=== PATIENT | female | born 1940 | race Caucasian/White ===

== ENCOUNTER 2022-09-02 13:31 | Emergency (ER) | payer OTHER ==
[2022-09-02] MEDS ORDERED: Morphine 2 MG/ML VIAL ONE ×2 (14:34→16:03)
[2022-09-02] MEDS ORDERED: Ondansetron PF 4 MG/2 ML Vial ONE (14:34)
[2022-09-02 15:17] LABS: #Basophils 0.1 thou/uL (0.0-0.2); #Eosinphils 0.1 thou/uL (0.0-0.7); #Lymphocytes 1.8 thou/uL (1.20-3.40); #Monocytes 0.5 thou/uL (0.11-0.59); #Neutrophils 10.1 thou/uL (1.40-6.50); %Basophils 0.6 % (0.0-1.0); %Eosinophils 1.1 % (0.0-10.0); %Lymphocytes 14.3 % (21.0-51.0); %Monocytes 4.3 % (0.0-10.0); %Neutrophils 79.8 % (42.0-75.0); Hemoglobin 12.4 g/dL (12.0-16.0); Mean Corpuscular HGB CONC 32.7 g/dL (32.0-36.0); Mean Corpuscular Hemoglobin 30.3 pg (27.0-31.0); Mean Corpuscular Volume 92.6 fl (78.0-98.0); Mean Platelet Volume 6.9 fL (7.4-10.4); Platelet Count 230 10x3/uL (130-400); RBC Distribution Width 12.6 % (11.5-14.5); White Blood Cell (WBC) Count 12.7 10x3/uL (4.8-10.8)
[2022-09-02 15:21] LABS: INR-International Normal Ratio 1.3; Prothrombin Time 16.7 sec (12.0-14.7)
[2022-09-02 15:22] LABS: PTT 37.6 sec (22.9-36.1)
[2022-09-02 15:31] LABS: ALT (SGPT) 18 U/L (8-55); AST (SGOT) 28 U/L (5-34); Albumin 4.1 g/dL (3.4-4.8); Alkaline Phosphatase 58 U/L (40-110); Anion Gap 15 mmol/L (10-20); BUN (Urea Nitrogen) 26 mg/dL (9.8-20.1); Bilirubin, Total 0.6 mg/dL (0.2-1.2); Calc. Creatinine Clearance 0 mL/min (70-130); Carbon Dioxide 25 mmol/L (23-31); Chloride 103 mmol/L (98-107); Estimated GFR 49; Globulin 3.7 g/dL (2.4-3.5); Glucose 124 mg/dL (83-110); Potassium 4.1 mmol/L (3.5-5.1); Protein, Total 7.8 g/dL (5.8-8.1); Sodium 139 mmol/L (136-145)
== END 2022-09-02 16:23 | disposition short-term general hospital (02) ==
LOC: MADERS 13:31
DX: S72.032A Displaced midcervical fracture of left femur, initial encounter for closed fracture (principal); S40.012A Contusion of left shoulder, initial encounter; S50.312A Abrasion of left elbow, initial encounter; W01.0XXA Fall on same level from slipping, tripping and stumbling without subsequent striking against object, initial encounter
CPT/HCPCS: 70450; 72125; 73030; 73080; 73552; 73562; 80053; 85025; 85610; 85730; 93005; J2270; 36415; 96374; 96375; 96376; J2405